=== PATIENT | female | born 1960 | race Caucasian/White ===

== ENCOUNTER 2018-08-14 16:00 | Outpatient (REF) | payer BC, SELFPAY ==
[2018-08-14 19:16] LABS: Bilirubin Negative (Negative); Blood Trace-intact (Negative); Clarity Clear; Glucose Negative (Negative); Ketones Negative (Negative); Leukocyte Esterase Negative (Negative); Nitrite Negative (Negative); Specific Gravity 1.015 (1.005-1.025); Urobilinogen 0.2 EU/dL (Up TO 0.2)
[2018-08-14 19:46] LABS: Bacteria Few HPF (Negative); C & S Indicated? No; Casts Negative LPF (Negative); Crystals Negative HPF (Negative); Epithelial Cells Negative HPF (Negative); Mucus Negative (Negative); Other Cells Negative (Negative); RBC 0-2 (0-2); WBC Negative HPF (0-5)
== END 2018-08-14 16:20 ==
LOC: NCHCN 16:00
PROVIDERS: PCP Physician Assistant Medical; Visit Provider Nurse Practitioner Family
DX: R31.9 Hematuria, unspecified (principal)
CPT/HCPCS: 81003; 81015

== ENCOUNTER 2018-08-17 09:48 | Outpatient (REF) | payer BC, SELFPAY ==
[2018-08-17 20:05] LABS: HCT 40.5 % (36.0-46.0); HGB 13.2 g/dL (12.0-15.5); Mean Corp. HGB Concentration 32.6 g/dL (32.0-36.0); Mean Corpuscular Hemoglobin 28.1 pg (27.0-33.0); Mean Corpuscular Volume 86.2 fL (80-95); Mean Platelet Volume 10.6 fL (8.0-11.0); Platelet Count 319 x1000/uL (130-400); RBC Distribution Width 14.3 % (11.7-14.6); White Blood Cell Count 5.94 k/cumm (4.4-10.8)
[2018-08-17 20:36] LABS: ALT 22 U/L (12-78); AST 16 U/L (15-37); Albumin 4.1 g/dL (3.4-5.0); Alkaline Phosphatase 67 U/L (46-116); Anion Gap 10.1 mmol/L (3-11); BUN 21 mg/dL (7-18); Bilirubin, Total 0.3 mg/dL (0.2-1.0); CO2 28.9 mmol/L (21.0-32.0); CREATININE 0.82 mg/dL (0.55-1.02); Calcium 8.9 mg/dL (8.5-10.1); Chloride 104 mmol/L (98-107); Glucose 97 mg/dL (70-100); Potassium 3.6 mmol/L (3.5-5.1); Sodium 143 mmol/L (136-145); TSH 3.02 uIU/mL (0.358-3.74); Total Protein 7.1 g/dL (6.4-8.2)
[2018-08-17 20:51] LABS: Cholesterol 206 mg/dL (50-200); HDL Cholesterol 68 mg/dL (40-60); LDL CHOLESTEROL 119 mg/dL (<100); Triglyceride 71 mg/dL (30-150)
[2018-08-19 11:56] LABS: Lyme Ab w Rflx to Lyme Confirm Negative
[2018-08-25 12:18] LABS: 25-Hydroxy D Total 88 ng/mL; 25-Hydroxy D2 <4.0 ng/mL; 25-Hydroxy D3 88 ng/mL
== END 2018-08-17 10:08 ==
LOC: NCHCN 09:48
PROVIDERS: PCP Physician Assistant Medical; Visit Provider Nurse Practitioner Family
DX: M25.50 Pain in unspecified joint (principal); R53.83 Other fatigue; Z00.00 Encounter for general adult medical examination without abnormal findings
CPT/HCPCS: 80053; 80061; 82306; 83721; 85027; 84443; 86618

== ENCOUNTER 2018-10-08 17:26 | Outpatient (REF) | payer BC, SELFPAY ==
--- NOTE | 2018-10-08 16:00 | PAPFT_PTH ---
PATIENT: Marcelle Villalpando LOC: [facility] U#:[id number] AGE/SX: 58/F ROOM: RE10/08/[address]: Deb Rader : 1960 BED: DIS: 10/08/2018 SPEC #: [id number] RECD: 10/09/18 13:12 STATUS: JACOBY RELori #: [id number] RAPHAEL: 10/08/18 16:[address]: Deb Rader DEPT: [facility] Cytology RECD BY: Tiana Bolivar ENTERED: 10/09/18 13:13 SP TYPE: PAPFT OTHR DR: Rafael Cohn V Tissues: 1 - CX/ENDOCX FOR PAP SMEARS Procedures: PAP THIN PREP/[facility] Screening Comments: [id number] (UNSATISFACTORY FOR EVALUATION)
== END 2018-10-08 17:46 ==
LOC: NCHCN 17:26
PROVIDERS: PCP Physician Assistant Medical; Visit Provider Nurse Practitioner Family
DX: Z12.4 Encounter for screening for malignant neoplasm of cervix (principal); Z11.51 Encounter for screening for human papillomavirus (HPV)
CPT/HCPCS: 88142; 87624

== ENCOUNTER 2022-04-19 09:26 | Outpatient (REF) | payer OTHER, SELFPAY ==
[2022-04-19 19:20] LABS: Bilirubin Negative (Negative); Blood Trace-intact (Negative); Clarity Clear (Clear); Glucose Negative (Negative); Ketones Negative (Negative); Leukocyte Esterase Negative (Negative); Nitrite Negative (Negative); Urobilinogen 0.2 EU/dL (Up TO 0.2); pH 6.5 (5-8)
[2022-04-19 19:26] LABS: Bacteria Rare HPF (Negative); C & S Indicated? No; Casts Negative LPF (Negative); Crystals Negative HPF (Negative); Epithelial Cells Rare HPF (Negative); Mucus Negative (Negative); WBC Negative HPF (0-5)
== END 2022-04-19 09:27 | disposition home or self-care (01) ==
LOC: NCHCN 09:26
PROVIDERS: PCP Physician Assistant Medical; Visit Provider Nurse Practitioner Family
DX: R31.9 Hematuria, unspecified (principal)
CPT/HCPCS: 81003; 81015

== ENCOUNTER 2022-05-31 15:01 | Outpatient (REF) | payer OTHER, SELFPAY ==
[2022-05-31 13:52] LABS: Bilirubin Negative (Negative); Blood Trace-lysed (Negative); Clarity Clear (Clear); Glucose Negative (Negative); Ketones Negative (Negative); Leukocyte Esterase Negative (Negative); Nitrite Negative (Negative); Specific Gravity 1.015 (1.005-1.025); Urobilinogen 0.2 EU/dL (Up TO 0.2)
[2022-05-31 14:03] LABS: Bacteria Negative HPF (Negative); C & S Indicated? No; Casts Negative LPF (Negative); Crystals Negative HPF (Negative); Epithelial Cells Rare HPF (Negative); Mucus Negative (Negative); RBC 0-2 HPF (0-2); WBC Negative HPF (0-5)
== END 2022-05-31 15:02 | disposition home or self-care (01) ==
LOC: LBN 15:01
PROVIDERS: PCP Physician Assistant Medical; Visit Provider Naturopath
DX: R31.29 Other microscopic hematuria (principal)
CPT/HCPCS: 81003; 81015